=== PATIENT | male | born 1990 | race Caucasian/White ===

== ENCOUNTER 2017-09-16 10:22 | Emergency (ER) | payer MEDICAID ==
[~2017-09-16] VITALS: Ht 188 cm; Wt 84.2 kg
[2017-09-16 11:49] VITALS: BP 137/71
== END 2017-09-16 11:59 ==
LOC: ED 11:33
DX: F10.10 Alcohol abuse, uncomplicated (principal); F41.9 Anxiety disorder, unspecified; F32.9 Major depressive disorder, single episode, unspecified
CPT/HCPCS: 99284